=== PATIENT | male | born 1960 | race Hispanic/Latino ===

== ENCOUNTER 2017-04-15 13:54 | Emergency (ER) | payer SELFPAY ==
[~2017-04-15] VITALS: Ht 162.6 cm; Wt 100.0 kg
[~2017-04-15 13:54] MED LIST: ACETIC ACID2 % AU; CLONIDINE0.1 MG PO; EC ASPIRIN325 MG PO; HYDROCHLOROT25 MG PO; LISINOP/HCTZ1 TAB PO; LISINOPRIL20 M1 OR; LISINOPRIL20 MG PO; LOPRESSOR50 M1 PO; LOPRESSOR50 MG PO; METO25TAB PO; METOPROL TAR25 MG PO; NAPROSYN500 MG PO
[2017-04-15 14:17] LABS: HEMOGLOBIN 15.2 g/dl (14.0-18.0); IMMATURE GRANULOCYTES 0.6 % (0.0-1.0); MEAN CELL VOLUME 92.2 fL CALC (80.0-100.0); MEAN CORPUSCULAR HGB 31.1 pG CALC (26.0-32.0); MEAN CORPUSCULAR HGB CONC 33.8 g/L CALC (32.0-36.0); NEUT# 4.63 thou/uL (1.82-7.42); RED BLOOD COUNT 4.88 mill/uL (4.70-6.10); RED CELL DISTRI WIDTH 12.4 % (11.5-15.5)
[2017-04-15 14:31] LABS: ALBUMIN 4.2 g/dL (3.2-5.0); ALKALINE PHOSPHATASE 69 u/l (38-126); ANION GAP 16 (6-22 (CALC)); BILIRUBIN, TOTAL 0.5 mg/dL (0.0-1.4); BUN 15 mg/dL (9-20); BUN/CREATININE RATIO 12 (12-20 (CALC)); CALCIUM 9.1 mg/dL (8.4-10.2); CARBON DIOXIDE 24 mmol/l (22-30); CHLORIDE 108 mmol/l (95-108); CREATININE 1.2 mg/dL (0.7-1.3); GFR > 60 ML/MIN (>=60 (CALC)); GFR FOR AFR.AMER. > 60 ML/MIN (>=60 (CALC)); GLUCOSE 136 mg/dL (75-110); POTASSIUM 4.4 mmol/l (3.5-5.1); SGOT/AST 46 u/l (17-59); SGPT/ALT 43 u/l (21-72); SODIUM 143 mmol/l (137-146); TOTAL PROTEIN 7.1 g/dL (6.3-8.2)
[2017-04-15 15:59] LABS: URINE BILIRUBIN - DIPSTICK NEGATIVE (NEGATIVE); URINE BLOOD DIPSTICK TRACE-INTACT (NEGATIVE); URINE CLARITY CLEAR; URINE COLOR YELLOW; URINE GLUCOSE - DIPSTICK NEGATIVE (NEGATIVE); URINE KETONE NEGATIVE (NEGATIVE); URINE LEUK ESTERASE NEGATIVE (NEGATIVE); URINE NITRITE - DIPSTICK NEGATIVE (Negative); URINE PROTEIN - DIPSTICK 30 mg/dL (NEG-TRACE); URINE SPECIFIC GRAVITY 1.015; URINE UROBILINOGEN - DIPSTICK 0.2 E.U./dL (0.2)
[2017-04-15 16:20] LABS: URINE SQUAMOUS EPITHELIAL CELL FEW EPI/hpf (0-FEW)
[2017-04-15 16:53] LABS: BARBITURATES NEGATIVE (NEGATIVE); COCAINE NEGATIVE (NEGATIVE); METHADONE NEGATIVE (NEGATIVE); OXCYCODONE NEGATIVE (NEGATIVE); TETRAHYDROCANNABIONOL NEGATIVE (NEGATIVE); TRICYLIC ANTIDEPRESSANTS NEGATIVE (NEGATIVE)
[2017-04-15 19:20] VITALS: BP 156/84
== END 2017-04-15 19:07 | DRG 999 ==
LOC: ED 13:54
PROVIDERS: Emergency Medicine
PROC: 0JQ10ZZ Repair Face Subcutaneous Tissue and Fascia, Open Approach (ICD-10-PCS; principal; 2017-04-15)
DX: S27.0XXA Traumatic pneumothorax, initial encounter (principal); S32.029A Unspecified fracture of second lumbar vertebra, initial encounter for closed fracture; S32.039A Unspecified fracture of third lumbar vertebra, initial encounter for closed fracture; S32.049A Unspecified fracture of fourth lumbar vertebra, initial encounter for closed fracture; S16.1XXA Strain of muscle, fascia and tendon at neck level, initial encounter; S22.41XA Multiple fractures of ribs, right side, initial encounter for closed fracture; S50.312A Abrasion of left elbow, initial encounter; S50.311A Abrasion of right elbow, initial encounter; S80.212A Abrasion, left knee, initial encounter; S80.211A Abrasion, right knee, initial encounter; S30.0XXA Contusion of lower back and pelvis, initial encounter; S20.229A Contusion of unspecified back wall of thorax, initial encounter; S01.511A Laceration without foreign body of lip, initial encounter; S01.81XA Laceration without foreign body of other part of head, initial encounter; S02.2XXA Fracture of nasal bones, initial encounter for closed fracture; V13.4XXA Pedal cycle driver injured in collision with car, pick-up truck or van in traffic accident, initial encounter; I10 Essential (primary) hypertension

== ENCOUNTER 2019-09-25 07:46 | Observation (INO) | payer SELFPAY ==
[2019-09-25] VITALS (11 sets, daily range): BP systolic 118–207; BP diastolic 82–110
[~2019-09-25] VITALS: Ht 162.6 cm; Wt 70.0 kg
--- NOTE | 2019-09-25 07:52 | NUR ---
PT TO ROOM VIA W/C
--- NOTE | 2019-09-25 07:55 | NUR ---
ASSISSTED TRIAGE NURSE TO TRANSLATE AND ATTACH EQUIPMENT TO PT. WHILE MOVING PT INTO BED FROM W/C SHUFFLING GAIT WAS NOTED AND WHILE ON BED AND WHILE ASKING QUESTIONS PT STATED HAVING LEFT SIDED WEAKNESS FOR THREE DAYS. LOOKBACK COORDINATOR STRENGTH TESTED AND LEFT HAD WAS WEAKER, NOTICED LEFT SIDED DROOPING ON FACE. RECONFIRMED WITH TRIAGE NURSE. NO SLURRED SPEACH NOTED. PT NOTED TO BE HYPERTENSIVE: BP 256/118 MANUAL BP DONE TO RECOMFIRM. SYSTOLIC WAS 250 MD NOTIFIED.
--- NOTE | 2019-09-25 08:01 | NUR ---
STROKE ALERT CALLED TO EMPLOYEE BENEFITS DIRECTOR MD NOTIFIED OF PT STATUS AT THIS TIME.
--- NOTE | 2019-09-25 08:08 | NUR ---
RETURNED FROM XRAY AND IV INITIATED LABS DRAWN [facility] COMPLETED RESULT: 7 PT IS NOT IN ANY DISTRESS AT THIS TIME PT DENIES ANY NEEDS PT STATES A PAIN OF 6/10 IN CHEST EKG PREFORMED MD NOTIFIED. PT REASSURED AND REEXPLAINED OF PLAN OF CARE.
[2019-09-25 08:27] LABS: GFR > 60 ML/MIN (>=60 (CALC)); GFR FOR AFR.AMER. > 60 ML/MIN (>=60 (CALC))
[2019-09-25 08:31] LABS: HEMATOCRIT 49.9 % (39.0-50.0); IMMATURE GRANULOCYTES 0.3 % (0.0-5.0); MEAN CELL VOLUME 90.6 fL CALC (80.0-100.0); MEAN CORPUSCULAR HGB 31.9 pG CALC (26.0-32.0); MEAN CORPUSCULAR HGB CONC 35.3 g/L CALC (32.0-36.0); NEUT# 5.52 thou/uL (1.82-7.42); RED BLOOD COUNT 5.51 mill/uL (4.70-6.10); RED CELL DISTRI WIDTH 12.2 % (11.5-15.5)
[2019-09-25 08:32] LABS: HEMOGLOBIN 17.6 g/dl (14.0-18.0)
[2019-09-25 08:49] LABS: ALBUMIN 4.2 g/dL (3.2-5.0); BUN 11 mg/dL (9-20); BUN/CREATININE RATIO 17 (12-20 (CALC)); CARBON DIOXIDE 27 mmol/l (22-30); CHLORIDE 96 mmol/l (95-108); CREATININE 0.7 mg/dL (0.7-1.3); ETHYL ALCOHOL 0 mg/dl (0-30); GFR > 60 ML/MIN (>=60 (CALC)); GFR FOR AFR.AMER. > 60 ML/MIN (>=60 (CALC)); INTERNATIONAL NORMALIZED RATIO 1.1 RATIO (0.7-1.3); POTASSIUM 4.2 mmol/l (3.5-5.1); PROTHROMBIN TIME 11.4 SECONDS (9.0-12.5); SGOT/AST 21 u/l (17-59)
[2019-09-25 08:52] LABS: ANION GAP 16 (6-22 (CALC))
[2019-09-25 08:53] LABS: ALKALINE PHOSPHATASE 143 u/l (38-126); SODIUM 135 mmol/l (137-146)
--- NOTE | 2019-09-25 08:54 | NUR ---
PT REMAINS HYPERTENSIVE. CARDENE INFUSION INIATIED, BP 230/125.
--- NOTE | 2019-09-25 09:00 | NUR ---
PT RESTING IN STRETCHER IN NAD. ASSITED WITH USE OF URINAL. LUE REMAINS WEAK.
[2019-09-25 09:16] LABS: URINE BILIRUBIN - DIPSTICK NEGATIVE (NEGATIVE); URINE BLOOD DIPSTICK TRACE-INTACT (NEGATIVE); URINE COLOR YELLOW; URINE GLUCOSE - DIPSTICK >=1000 mg/dL (NEGATIVE); URINE KETONE NEGATIVE (NEGATIVE); URINE LEUK ESTERASE NEGATIVE (NEGATIVE); URINE NITRITE - DIPSTICK NEGATIVE (Negative); URINE PH 7.5 (4.5-8.0); URINE PROTEIN - DIPSTICK TRACE mg/dL (NEG-TRACE); URINE UROBILINOGEN - DIPSTICK 0.2 E.U./dL (0.2)
[2019-09-25 09:19] LABS: BARBITURATES NEGATIVE (NEGATIVE); COCAINE NEGATIVE (NEGATIVE); METHADONE NEGATIVE (NEGATIVE); OXCYCODONE NEGATIVE (NEGATIVE); TETRAHYDROCANNABIONOL NEGATIVE (NEGATIVE); TRICYLIC ANTIDEPRESSANTS NEGATIVE (NEGATIVE)
--- NOTE | 2019-09-25 10:00 | NUR ---
PT RESTING IN STRETCHER IN NAD. NO CHANGE IN PT STATUS NOTED. PT AWARE OF PLAN FOR ADMISSION.
[2019-09-25 10:40] LABS: CHOLESTEROL HDL RATIO 5.2 (<4.4 (CALC))
--- NOTE | 2019-09-25 10:41 | NUR ---
ATTEMPTED TO CALL ICU FOR REPORT. NO ANSWER, WILL TRY LATER
--- NOTE | 2019-09-25 11:02 | NUR ---
CALLED ICU FOR REPORT, HIGINIO ANSWERED AND MENTIONED THAT THE NURSE WILL BE WALDO AND THAT SHE IS CURRENTLY MAKING ROUNDS WITH THE DOCTOR. HIGINIO TOLD ME WALDO WILL CALL ME WHEN SHE IS DONE.
--- NOTE | 2019-09-25 11:20 | NUR ---
RECIEVED CALL FROM WALDO. REPORT FELIPE
--- NOTE | 2019-09-25 11:30 | NUR ---
TRANSPORTED PT UP TO ICU VIA STRETCHER. PT STABLE IN NO DISTRESS. CARE ASSUMED TO WALDO.
--- NOTE | 2019-09-25 11:50 | NUR ---
PT TRANSPORTED TO ICU VIA STRETCHER. CARE ASSUMED TO WALDO PT STABLE IN NO DISTRESS
--- NOTE | 2019-09-25 12:10 | NUR ---
PT TO ICU BED 8 VIA STRETCHER ACCOMPANIED BY ER NURSE DONNIE PARKER. DONNIE STAYED TO TRANSLATE. ADMISSION ASSESSMNET COMPLETED AT THIS TIME. IV PATENT X2. NIH COMPLETED WITH INTRAVENOUS THERAPY NURSE WELL. NIH OF 10. PAYAM COTTO NOTIFIED OF WORSENING NIH. ORIENTED PT TO ROOM AND UNIT CALL LIGHT IN REACH. WILL CONTINUE TO MONITOR.
--- NOTE | 2019-09-25 12:45 | NUR ---
PAYAM COTTO PHONED FOR ORDERS. ORDERS RECEIVED FOR SBP OF [address] [employer] FOR CARDENE. TURNED CARDENE GTT OFF AT THIS TIME.
--- NOTE | 2019-09-25 13:20 | NUR ---
DR FOX AND PAYAM COTTO AT BEDSIDE AT THIS TIME. DR FOX EXPLAINED TO PATIENT IN [facility] THAT HE WOULD BE TRANSFERRED. CONSENT OBTAINED AT THIS TIME
--- NOTE | 2019-09-25 13:30 | NUR ---
[facility] PHONED SPOKE WITH [facility] TRANSFER INITIATED.
--- NOTE | 2019-09-25 13:45 | NUR ---
BP 207/113 CARDENE ON AT THIS TIME
--- NOTE | 2019-09-25 14:09 | NUR ---
GIORGIO DOMINGUEZ CHAIR UPHOLSTERER AT [facility] PHONED FOR UPDATE. UPDATE PROVIDED. REQUEST THAT PATIENT BE FLOWN. PAYAM COTTO NOTIFIED ORDERS RECIEVED TO FLY PATIENT.
--- NOTE | 2019-09-25 14:15 | NUR ---
HOSPITAL BED ICU 557 CALL REPORT TO [phone]
--- NOTE | 2019-09-25 14:15 | NUR ---
[facility] NOTIFIED OF TRANSPORT ETA 15 MINUTES
--- NOTE | 2019-09-25 15:00 | NUR ---
AEROMED ON UNIT. REPORT GIVEN
--- NOTE | 2019-09-25 15:15 | NUR ---
PT LEFT WITH AEROMED VIA STRETCHER.
--- NOTE | 2019-09-25 15:20 | NUR ---
REPORT CALLED TO BHUMIKA AT [facility] [phone]
== END 2019-09-25 15:15 | disposition short-term general hospital (02) | DRG 65 ==
LOC: ED 07:46 → ED-I 09:33 → ED 09:34 → ICU 09:35
PROVIDERS: Nurse Practitioner Family; ADMIT Internal Medicine; ATTEND Internal Medicine
DX: I63.30 Cerebral infarction due to thrombosis of unspecified cerebral artery (principal); I16.1 Hypertensive emergency; G81.94 Hemiplegia, unspecified affecting left nondominant side; R29.810 Facial weakness; R47.1 Dysarthria and anarthria; R29.707 NIHSS score 7; I10 Essential (primary) hypertension; E11.65 Type 2 diabetes mellitus with hyperglycemia; I48.91 Unspecified atrial fibrillation; T46.5X6A Underdosing of other antihypertensive drugs, initial encounter; T45.516A Underdosing of anticoagulants, initial encounter; Z91.128 Patient's intentional underdosing of medication regimen for other reason
CPT/HCPCS: Q9967

== ENCOUNTER 2020-03-18 21:54 | Emergency (ER) | payer SELFPAY ==
[2020-03-18 22:54] LABS: IMMATURE GRANULOCYTES 0.3 % (0.0-5.0); MEAN CELL VOLUME 95.8 fL CALC (80.0-100.0); MEAN CORPUSCULAR HGB 32.1 pG CALC (26.0-32.0); MEAN CORPUSCULAR HGB CONC 33.5 g/dL CAL (32.0-36.0); NEUT# 7.4 thou/uL (1.82-7.42); RED BLOOD COUNT 4.52 mill/uL (4.70-6.10); RED CELL DISTRI WIDTH 12.5 % (11.5-15.5)
[2020-03-18 22:57] LABS: URINE BILIRUBIN - DIPSTICK NEGATIVE (NEGATIVE); URINE BLOOD DIPSTICK NEGATIVE (NEGATIVE); URINE COLOR YELLOW; URINE GLUCOSE - DIPSTICK NEGATIVE (NEGATIVE); URINE KETONE NEGATIVE (NEGATIVE); URINE LEUK ESTERASE NEGATIVE (NEGATIVE); URINE NITRITE - DIPSTICK NEGATIVE (Negative); URINE PH 5.5 (4.5-8.0); URINE PROTEIN - DIPSTICK TRACE mg/dL (NEG-TRACE); URINE SPECIFIC GRAVITY >=1.030; URINE UROBILINOGEN - DIPSTICK 0.2 E.U./dL (0.2)
[2020-03-18 23:11] LABS: BARBITURATES NEGATIVE (NEGATIVE); COCAINE NEGATIVE (NEGATIVE); METHADONE NEGATIVE (NEGATIVE); OXCYCODONE NEGATIVE (NEGATIVE); TETRAHYDROCANNABIONOL NEGATIVE (NEGATIVE); TRICYLIC ANTIDEPRESSANTS NEGATIVE (NEGATIVE)
[2020-03-18 23:15] LABS: HEMATOCRIT 43.3 % (39.0-50.0); HEMOGLOBIN 14.5 g/dl (14.0-18.0)
[2020-03-18 23:34] LABS: ALBUMIN 3.8 g/dL (3.2-5.0); ALKALINE PHOSPHATASE 78 u/l (38-126); ANION GAP 11 (6-22 (CALC)); BUN 29 mg/dL (9-20); BUN/CREATININE RATIO 33 (12-20 (CALC)); CARBON DIOXIDE 23 mmol/l (22-30); CHLORIDE 106 mmol/l (95-108); CREATININE 0.9 mg/dL (0.7-1.3); ETHYL ALCOHOL 0 mg/dl (0-30); GFR > 60 ML/MIN (>=60 (CALC)); GFR FOR AFR.AMER. > 60 ML/MIN (>=60 (CALC)); MAGNESIUM 1.7 mg/dL (1.6-2.3); POTASSIUM 4.7 mmol/l (3.5-5.1); SGOT/AST 24 u/l (17-59); SODIUM 135 mmol/l (137-146); TOTAL PROTEIN 6.6 g/dL (6.3-8.2)
[2020-03-18 23:35] LABS: BILIRUBIN, TOTAL 0.4 mg/dL (0.0-1.4)
[2020-03-19 00:04] LABS: TSH, 3RD GENERATION 1.91 uIU/mL (0.47 - 4.68)
[2020-03-19] MEDS ORDERED: ELIQUIS STARTER5 MG (01:13)
[2020-03-19] MEDS ORDERED: NOVOLIN N100 UNIT/3 (01:14)
[2020-03-19] MEDS ORDERED: ZESTRIL5 M1 PO (01:15)
[2020-03-19] MEDS ORDERED: METOPROL TAR25 M1 PO (01:16)
[2020-03-19 01:21] VITALS: BP 108/79
== END 2020-03-19 01:21 | disposition home or self-care (01) | DRG 57 ==
LOC: ED 21:54
PROVIDERS: Family Medicine
DX: I69.351 Hemiplegia and hemiparesis following cerebral infarction affecting right dominant side (principal); I10 Essential (primary) hypertension; I48.91 Unspecified atrial fibrillation